=== PATIENT | male | born 2000 | race Asian ===

== ENCOUNTER → 2022-01-31 09:25 | Outpatient (CLI) | payer BC, OTHER, SELFPAY | PROVIDERS: Visit Provider Physician Assistant | DX: R30.0 Dysuria (principal) | CPT/HCPCS: 87086 ==

== ENCOUNTER → 2022-01-31 09:50 | Outpatient (CLI) | payer OTHER, SELFPAY ==
[2022-01-31 10:41] LABS: Add Manual Diff / Slide Review NO; Basophils Absolute Auto 0 /uL (0-100); Basophils Percent Auto 0.5 % (0-2); Eosinophils Absolute Auto 200 /uL (0-450); Eosinophils Percent Auto 3.2 % (2-4); Hematocrit 45.3 % (41-53); Hemoglobin 15.7 g/dL (13.5-17.5); Lymphocytes Absolute Auto 1100 /uL (1100-4500); Lymphocytes Percent Auto 16.4 % (25-40); Mean Corpuscular HGB Conc 34.8 % (30-36); Mean Corpuscular Hemoglobin 29.1 PG (26-34); Mean Corpuscular Volume 83.6 fL (80-100); Monocytes Absolute Auto 500 /uL (0-900); Monocytes Percent Auto 8.3 % (3-14); Neutrophils Absolute Auto 4700 /uL (1500-7000); Neutrophils Percent Auto 71.6 % (50-75); Platelet Count 266 X10^3/uL (150-400); Red Blood Cell Count 5.42 X10^6/uL (4.5-5.9); White Blood Cell Count 6.6 X10^3/uL (4.5-11.0)
[2022-01-31 11:06] LABS: Sodium 141 mmol/L (137-145)
[2022-01-31 11:07] LABS: Alanine Aminotransferase 58 IU/L (<50); Albumin 4.9 g/dL (3.5-5.0); Albumin Globulin Ratio 1.5 (1.0-2.8); Alkaline Phosphatase 72 U/L (38-126); Aspartate Aminotransferase 35 IU/L (17-59); BUN Creatinine Ratio 14.4 (6-22); Bilirubin Total 0.6 mg/dL (0.2-1.3); Blood Urea Nitrogen 13 mg/dL (9-20); Calcium 9.5 mg/dL (8.4-10.2); Carbon Dioxide 32 mmol/L (22-32); Chloride 101 mmol/L (98-107); Estimated Glomerular Filt Rate > 60 mL/min (>60); Globulin 3.2 g/dL (1.7-4.1); Glucose 113 mg/dL (70-100); HEMOLYSIS 24 (0-50); Potassium 3.9 mmol/L (3.4-5.1); Total Protein 8.1 g/dL (6.3-8.2)
== END ==
PROVIDERS: Referring Provider Physician Assistant; Visit Provider Physician Assistant
DX: R10.9 Unspecified abdominal pain (principal); R30.0 Dysuria
CPT/HCPCS: 36415; 80053; 85025; 87086

== ENCOUNTER → 2023-07-07 10:14 | Outpatient (CLI) | payer OTHER, SELFPAY ==
[2023-07-07 13:09] LABS: Urine N gonorrhoeae NOT DETECTED
[2023-07-07 13:14] LABS: Urine Chlamydia NOT DETECTED
== END ==
PROVIDERS: Visit Provider Physician Assistant
DX: N50.819 Testicular pain, unspecified (principal)
CPT/HCPCS: 87086; 87491; 87591